=== PATIENT | female | born 1945 | race Caucasian/White ===

== ENCOUNTER 2016-09-30 02:05 | Inpatient (IN) ==
[2016-09-24 13:05] LABS: URINE SOURCE CLEAN CATCH
[2016-09-24 13:10] LABS: MANUAL DIFF NEEDED? NO
[2016-09-24 13:32] LABS: INR 1.19; PROTIME 12.6 Seconds (9.2-11.7); PTT 28.7 Seconds (22.0-36.0)
[2016-09-24 13:42] LABS: BASO% 0.3 % (0.0-0.8); EOS# 0.03 X1000 (0.0-0.7); EOS% 0.4 % (0.0-10.0); HEMATOCRIT 43.7 % (37.0-47.0); HEMOGLOBIN 14.3 g/dL (12.0-16.0); LYMPH# 1.49 X1000 (1.2-3.4); LYMPH% 21.4 % (20.5-51.1); MCH 32.2 PG (27-31); MCHC 32.7 g/dL (33-37); MCV 98.4 FL (81-99); MONO# 0.55 X1000 (0.11-0.59); MONO% 7.9 % (1.7-9.3); MPV 10.5 FL (7.4-10.4); PLT 292 X1000 (130-400); RBC 4.44 XMIL (4.2-5.4)
[2016-09-24 13:51] LABS: BILIRUBIN URINE NEGATIVE (NEGATIVE); BLOOD URINE NEGATIVE (NEGATIVE); CLARITY SLIGHTLY CLOUDY (CLEAR); COLOR YELLOW; GLUCOSE URINE NEGATIVE (NEGATIVE); LEUKOCYTES URINE NEGATIVE (NEGATIVE); NITRITE URINE NEGATIVE (NEGATIVE); PH URINE 7.5; PROTEIN URINE NEGATIVE (NEGATIVE); UROBILINOGEN URINE 0.2 EU/dL (0.2-1.0)
[2016-09-24 13:54] LABS: URINE EPITHELIAL CELLS <10 /HPF (<10); URINE RBC <10 /HPF (<10); URINE WBC <10 /HPF (<10)
[2016-09-24 13:57] LABS: AGAP 12; BUN 14 mg/dL (8-22); CALCIUM 9.9 mg/dL (8.8-10.2); CHLORIDE 100 mmol/L (98-107); COSMO 278; POTASSIUM 4.3 mmol/L (3.5-5.1); SODIUM 139 mmol/L (136-145); TCO2 27 mmol/L (25-35)
[2016-09-30] MEDS ORDERED: REGLAN ONE (06:09)
[2016-09-30] MEDS ORDERED: PEPCID ONE (06:09)
[2016-09-30] MEDS ORDERED: COLACE ONE (06:09)
[2016-09-30] MEDS ORDERED: CELEBREX ONE (06:10)
[2016-09-30] MEDS ORDERED: LYRICA ONE (06:10)
[2016-09-30] MEDS ORDERED: KEFZOL 1 GM/D5W 50 ML ONE (06:10)
[2016-09-30] MEDS ORDERED: LR 1,000 ML ONE ×2 (06:10→10:58)
[2016-09-30] MEDS ORDERED: NAROPIN 0.5% ONE (07:34)
[2016-09-30] MEDS ORDERED: DURAMORPH ONE (07:51)
[2016-09-30] MEDS ORDERED: TORADOL ONE (07:51)
[2016-09-30] MEDS ORDERED: SODIUM CHLORIDE 0.9% ONE (07:52)
[2016-09-30] MEDS ORDERED: NEOSPORIN G.U. IRRIGANT ONE (07:52)
[2016-09-30] MEDS ORDERED: EXPAREL 1.3% ONE (07:52)
[2016-09-30] MEDS ORDERED: MARCAINE 0.25% PF/EPI 1:200,000 ONE (07:52)
[2016-09-30] MEDS ORDERED: CLAVE SECONDARY SET 11953 ONE ×2 (08:25→10:58)
[2016-09-30] MEDS ORDERED: CYKLOKAPRON 1,000 MG/NS 100 ML ONE (08:25)
[2016-09-30] MEDS ORDERED: TENORMIN PO SCH (09:00)
[2016-09-30] MEDS ORDERED: VANCOMYCIN ONE (09:00)
[2016-09-30] MEDS ORDERED: ELIQUIS PO SCH (09:00)
[2016-09-30] MEDS ORDERED: TRICOR PO SCH (09:00)
--- NOTE | 2016-09-30 09:21 | HISTORY AND PHYSICAL ---
CHIEF COMPLAINT: Left shoulder pain. HISTORY OF PRESENT ILLNESS: Ms. Lopez is a 71-year-old, white female with a history of left shoulder pain for about 3 months after she fractured her humerus. While in rehab, she reinjured it. We will be admitting her today for a left reverse total shoulder arthroplasty. PAST MEDICAL HISTORY: Hypertension, congestive heart failure, myocardial infarction, cardiac stents, atrial fibrillation, gout, hyperlipidemia, hypothyroidism. SURGICAL HISTORY: Carotid endarterectomy, bladder tack, hysterectomy, aneurysm repair in the groin. FAMILY HISTORY: Noncontributory. SOCIAL HISTORY: She is . She smokes about a half a pack of cigarettes a day and reports using alcohol occasionally. CURRENT HOME MEDICATIONS: 1. Mobic 7.5 mg p.o. daily. 2. Atenolol 25 mg p.o. daily. 3. Synthroid 100 mcg p.o. daily. 4. Amiodarone 200 mg p.o. daily. 5. Tramadol 50 mg p.o. q.6 hours. 6. Trazodone 100 mg p.o. at bedtime p.r.n. 7. Losartan potassium 50 mg p.o. daily. 8. Allopurinol 300 mg p.o. daily. 9. Eliquis 5 mg p.o. b.i.d. 10. Atorvastatin 80 mg p.o. daily. 11. TriCor 145 mg p.o. daily. 12. Oxycodone/acetaminophen 5/325 one p.o. p.r.n. ALLERGIES: No known drug allergies. PRIMARY CARE PROVIDER: Dr. Vinay Garcia. REVIEW OF SYSTEMS: HEENT: The patient reports wearing glasses, having dentures and hearing aids as well. Cardiac: Patient reports having a history of atrial fibrillation as well as having a myocardial infarction in the past. Pulmonary: The patient denies any lung problems. Denies any coughing, wheezing, or hemoptysis. Gastrointestinal: Patient denies any chronic gastrointestinal problems. Denies any nausea, vomiting, or diarrhea. Genitourinary: The patient reports having a bladder tack in the past and having urinary frequency but denies any other genitourinary problems. Neurological: Patient denies any numbness or tingling anywhere. Denies any neurological deficits. Musculoskeletal: Patient reports left shoulder pain. PHYSICAL EXAMINATION: GENERAL: The patient is in the bed. She is sitting up. She is articulate and answers questions appropriately. HEENT: Head is normocephalic, atraumatic. Pupils equal, round, and reactive to light. Nares patent. Throat without exudate. CARDIAC: S1-S2 auscultated. There is a systolic murmur which is a grade 3/6 as well as a left carotid bruit. I have conveyed that to anesthesia to evaluate further. PULMONARY: The patient's lungs are clear to auscultation bilaterally in all lung griggs. GASTROINTESTINAL: Abdomen is soft, nontender, and nondistended. Bowel sounds present in all quadrants. GENITOURINARY: Not examined. NEUROLOGICAL: Patient has good sensation to dull touch in all extremities. Cranial nerves 2-12 are grossly intact. MUSCULOSKELETAL: On physical examination of the left shoulder, it reveals pain with palpation and passive range of motion of the left shoulder and left straight upper extremity. IMPRESSION: Left two-part humerus fracture. PLAN: Left reverse total shoulder arthroplasty. The risks, benefits, and alternatives of the surgery were discussed with the patient including the risk of anesthesia, bleeding, damage to blood vessels, nerves, tendons, ligaments, and other imponderables were discussed. The patient agrees to proceed with the surgery at this time. Dictated by MARQUISE Ashton for Jeffery Valerio MD
[2016-09-30] MEDS: CORDARONE PO SCH (10:18)
[2016-09-30] MEDS: ZYLOPRIM PO SCH (10:18)
[2016-09-30] MEDS: COZAAR PO SCH ×2 (10:18→12:37)
[2016-09-30] MEDS ORDERED: NS 1,000 ML ONE (10:37)
[2016-09-30] MEDS ORDERED: MORPHINE IV PRN (10:39)
[2016-09-30] MEDS ORDERED: MILK OF MAGNESIA PO PRN (10:45)
[2016-09-30] MEDS ORDERED: ZOFRAN PO PRN (10:45)
[2016-09-30] MEDS ORDERED: FENTANYL ONE (10:53)
[2016-09-30] MEDS ORDERED: VERSED ONE (10:53)
[2016-09-30] MEDS ORDERED: DIPRIVAN 1% ONE (10:54)
[2016-09-30] MEDS ORDERED: NORCURON ONE (10:57)
[2016-09-30] MEDS ORDERED: NEOSTIGMINE ONE (10:57)
[2016-09-30] MEDS ORDERED: DECADRON ONE (10:58)
[2016-09-30] MEDS ORDERED: ROBINUL ONE (10:58)
[2016-09-30] MEDS ORDERED: OFIRMEV 1000 MG/ISOTONIC SOLN 100 ML ONE (10:58)
[2016-09-30] MEDS ORDERED: QUELICIN (DOSE) ONE (10:58)
[2016-09-30 11:33] LABS: URINE SOURCE CATH
--- NOTE | 2016-09-30 11:34 | OPERATIVE NOTE ---
PROCEDURE DATE: 09/30/2016 PREOPERATIVE DIAGNOSIS: Left proximal humeral fracture. POSTOPERATIVE DIAGNOSIS: Left proximal humeral fracture. PROCEDURE: Left reverse total shoulder arthroplasty with a DePuy Delta Xtend size 10 cemented stem, a 42 +6 humeral cup, 42 eccentric Glenosphere and a standard metaglene. SURGEON: Jeffery Valerio MD BARREL POLISHER: MARQUISE Ashton [employer] T[employer]OR: Colt Marmolejo RN. ANESTHESIA: General. IV FLUIDS: 1700 mL lactated Ringer's. ESTIMATED BLOOD LOSS: 200 mL. COMPLICATIONS: None. INDICATION: The patient is a pleasant 71-year-old female who is status post a fall, sustaining a left proximal humeral fracture a couple months ago. She was attempting nonoperative treatment, had some increased displacement, and inadequate healing, and given patient's continued pain and discomfort, recommendation to proceed with left reverse shoulder arthroplasty was offered. Risks and benefits of surgical explained, includes risk of anesthesia, , bleeding, infection, failure to relieve pain, postop stiffness, nerve injury, blood clots, and other imponderables. All questions were answered and the patient and family wished to proceed with surgery. DETAILS OF OPERATION: Patient was taken to the operating room and placed supine on the operating table. Once adequate anesthesia was obtained, patient was placed in semi-Sanchez beach-chair position. The left shoulder was subsequently prepped and draped in usual sterile fashion. A standard deltopectoral incision was made with a skin knife. Medial and lateral skin envelopes were developed. Hemostasis was obtained using electrocautery. The deltopectoral interval was then developed. The cephalic vein was retracted laterally. Dubois retractors were placed. The clavipectoral fascia was then elevated. Attention then turned to the subscapularis, it was elevated off its insertion site. A stay suture was placed. The biceps tendon was released. The proximal humeral head was then identified and removal of the head was then conducted and the soft tissue was excised. The patient did have evidence of greater tuberosity with loose fracture as well. A rongeur was used on this as well as excising the tissue attached to this site. After this had been performed, attention was then turned to the glenoid. Circumferential dissection was performed with a deep knife. A guide was then placed on the glenoid and a guide pin was placed. Reaming was then conducted. A standard metaglene was placed. Three locking screws were then placed. It appeared to have good stability. A 42 Eccentric glenosphere was then placed with eccentricity placed inferiorly. After this had been performed, attention then turned to the humerus. Reaming was then conducted up to a size 10. A trial stem was then placed to determine the height and then this was removed. Copious irrigation was performed with antibiotic pulsatile lavage in the intramedullary canal, while vancomycin was mixed with cement on the back table. Cement was then impacted in the humeral shaft, this followed by the size 10 Delta Xtend cemented stem, placed in position in 10 degrees of retroversion. After the cement had hardened, trial cups were placed and the 42 +6 had excellent stability and range of motion. The trial cup was removed. A 42 +6 humeral cup was then impacted on the stem. The shoulder was reduced, carried through range of motion had excellent stability and range of motion. Exparel was placed in deep soft tissue as well as subcutaneous tissue. The wound was copiously irrigated with antibiotic pulsatile lavage. A 2-0 Vicryl was then used to repair the subcutaneous tissue, followed by running 2-0 Prolene. Benzoin and Steri-Strips were placed. Adaptic, sterile 4x4s, ABD pad, and tape applied to the left shoulder, followed by a shoulder immobilizer. All counts correct. Patient tolerated the procedure well, was transferred to the recovery room in stable condition.
[2016-09-30 11:37] LABS: BILIRUBIN URINE NEGATIVE (NEGATIVE); BLOOD URINE NEGATIVE (NEGATIVE); COLOR YELLOW; GLUCOSE URINE NEGATIVE (NEGATIVE); LEUKOCYTES URINE NEGATIVE (NEGATIVE); NITRITE URINE NEGATIVE (NEGATIVE); PROTEIN URINE NEGATIVE (NEGATIVE); SP GRAVITY URINE 1.019; TURBIDITY URINE CLEAR (CLEAR); UROBILINOGEN URINE NORMAL (NORMAL)
[2016-09-30 11:38] LABS: URINE MICRO REVIEW NEEDED? YES
[2016-09-30 11:42] LABS: UR EPITHELIAL CELLS <10 /HPF (<10); URINE BACTERIA NEGATIVE /HPF; URINE RBC <10 /HPF (<10); URINE WBC <10 /HPF (<10)
[2016-09-30 11:48] LABS: URINE CASTS NONE SEEN; URINE CRYSTALS NONE SEEN
[2016-09-30 11:49] LABS: URINE SMALL ROUND CELLS NONE SEEN
[2016-09-30] MEDS: NS 1,000 ML IV SCH ×2 (11:58→22:06)
--- NOTE | 2016-09-30 13:45 | Diag Imaging Result Document ---
PROCEDURE NAME: SHOULDER 1 VIEW LEFT - 09/30/2016 X-RAY LEFT SHOULDER, 1 VIEW: COMPARISON: None. FINDINGS: There has been placement of a left total shoulder arthroplasty. Alignment is anatomic. No hardware fracture or loosening. IMPRESSION: No evidence of complication.
[2016-09-30] MEDS ORDERED: CYKLOKAPRON 1,000 MG in NS 100 ML IV ONE (14:35)
[2016-09-30] MEDS: TYLENOL PO SCH ×2 (15:45→22:06)
[2016-09-30] MEDS: KEFZOL 1 GM/D5W 50 ML IV SCH (16:04)
[2016-09-30] MEDS: OXY IR PO PRN ×3 (16:09→22:07)
[2016-09-30] MEDS ORDERED: DESYREL PO PRN (21:00)
[2016-09-30] MEDS: ELIQUIS PO SCH (22:07)
[2016-09-30] MEDS: COLACE PO SCH (22:07)
[2016-09-30] MEDS: PERIDEX MT SCH (22:08)
[2016-10-01] MEDS: KEFZOL 1 GM/D5W 50 ML IV SCH (01:06)
[2016-10-01] MEDS: TYLENOL PO SCH ×2 (02:29→08:55)
[2016-10-01] MEDS: OXY IR PO PRN (05:49)
[2016-10-01 06:51] LABS: HEMOGLOBIN 11.6 g/dL (12.0-16.0)
[2016-10-01 07:19] LABS: AGAP 14; BUN 11 mg/dL (8-22); CALCIUM 9.1 mg/dL (8.8-10.2); CHLORIDE 106 mmol/L (98-107); COSMO 282; POTASSIUM 5.3 mmol/L (3.5-5.1); SODIUM 142 mmol/L (136-145); TCO2 22 mmol/L (25-35)
--- NOTE | 2016-10-01 08:42 | PROGRESS NOTE ---
DATE: 10/01/2016 SUBJECTIVE: The patient is a pleasant 71-year-old female who is one day status-post left reverse total shoulder arthroplasty. The patient is currently resting comfortably and has had no interval complaints. OBJECTIVE: On physical exam the patient's left shoulder dressing is intact. She is neurovascularly intact distally. Her hemoglobin and hematocrit are pending. IMPRESSION: Postoperative day #1 status-post left reverse total shoulder arthroplasty. PLAN: At this point we will change her dressing, discontinue her Mendiola, and heplock her IV. We will mobilize with physical therapy and we will have her discharged home after therapy. We will arrange for outpatient physical therapy and she will follow up on 10/13/2016.
[2016-10-01] MEDS: PERIDEX MT SCH (08:54)
[2016-10-01] MEDS: ELIQUIS PO SCH (08:55)
[2016-10-01] MEDS: CORDARONE PO SCH (08:55)
[2016-10-01] MEDS: COLACE PO SCH (08:55)
[2016-10-01] MEDS: ZYLOPRIM PO SCH (08:55)
[2016-10-01] MEDS: COZAAR PO SCH (08:56)
[2016-10-01] MEDS ORDERED: SYNTHROID PO SCH (09:00)
[2016-10-01] MEDS ORDERED: TENORMIN PO SCH (09:00)
[2016-10-01] MEDS ORDERED: DECADRON IV ONE (09:00)
[2016-10-01] MEDS ORDERED: LIPITOR PO SCH (09:00)
[2016-10-01] MEDS ORDERED: MOBIC PO SCH (09:00)
[2016-10-01] MEDS ORDERED: TRICOR PO SCH (09:00)
[2016-10-01 16:07] VITALS: BP 159/62
== END 2016-10-01 09:52 | disposition home or self-care (01) | DRG 483 ==
LOC: SURHOLD 02:05 → 4N 08:50
PROVIDERS: ADMIT Orthopaedic Surgery Adult Reconstructive Orthopaedic Surgery; ATTEND Orthopaedic Surgery Adult Reconstructive Orthopaedic Surgery
PROC: 0RRK00Z Replacement of Left Shoulder Joint with Reverse Ball and Socket Synthetic Substitute, Open Approach (ICD-10-PCS; principal; 2016-09-30 08:08)
DX: S42.202G Unspecified fracture of upper end of left humerus, subsequent encounter for fracture with delayed healing (principal); I11.0 Hypertensive heart disease with heart failure; I48.91 Unspecified atrial fibrillation; I50.9 Heart failure, unspecified; S42.252G Displaced fracture of greater tuberosity of left humerus, subsequent encounter for fracture with delayed healing; M10.9 Gout, unspecified; E03.9 Hypothyroidism, unspecified; R01.1 Cardiac murmur, unspecified; I73.00 Raynaud's syndrome without gangrene; M19.90 Unspecified osteoarthritis, unspecified site; W19.XXXA Unspecified fall, initial encounter; I25.10 Atherosclerotic heart disease of native coronary artery without angina pectoris; E78.5 Hyperlipidemia, unspecified; F17.210 Nicotine dependence, cigarettes, uncomplicated; I25.2 Old myocardial infarction; Z95.5 Presence of coronary angioplasty implant and graft; Z79.1 Long term (current) use of non-steroidal anti-inflammatories (NSAID); Z79.01 Long term (current) use of anticoagulants; Z79.899 Other long term (current) drug therapy; R09.89 Other specified symptoms and signs involving the circulatory and respiratory systems
CPT/HCPCS: 80048; 81001; 85014; 85018; 85025; 85610; 85730; 86850; 86900; 86901; 88305; 88311; 93005; 94761; 94799; C9290; J0131; J0330; J0690; J1100; J1885; J2250; J2274; J2795; J3010; J3370; J7030; J7120; 97110-GP; 97530-GP; J2710; S0020

== ENCOUNTER 2017-05-14 02:39 | Inpatient (IN) ==
[2017-05-14 03:11] LABS: MANUAL DIFF NEEDED? NO
[2017-05-14 03:13] LABS: BASO% 0.1 % (0.0-0.8); EOS# 0.04 X1000 (0.0-0.7); EOS% 0.6 % (0.0-10.0); HEMOGLOBIN 12.9 g/dL (12.0-16.0); IMM GRAN# 0.02 X1000 (0.0-0.04); IMM GRAN% 0.3 % (0.0-0.5); LYMPH# 1.11 X1000 (1.2-3.4); LYMPH% 16.1 % (20.5-51.1); MCH 32.4 PG (27-31); MCHC 33.1 g/dL (33-37); MONO# 0.68 X1000 (0.11-0.59); MONO% 9.9 % (1.7-9.3); MPV 10.2 FL (7.4-10.4); PLT 290 X1000 (130-400); RBC 3.98 XMIL (4.2-5.4)
[2017-05-14] MEDS ORDERED: MORPHINE IV ONE ×3 (03:25→06:00)
[2017-05-14] MEDS ORDERED: MORPHINE ONE (03:27)
[2017-05-14 03:32] LABS: AGAP 14; ALBUMIN 3.8 g/dL (3.5-5.0); ALKALINE PHOSPHATASE 43 U/L (32-104); BUN 24 mg/dL (8-22); CALCIUM 9.5 mg/dL (8.8-10.2); CHLORIDE 100 mmol/L (98-107); COSMO 278; GOT 41 U/L (10-30); GPT 21 U/L (10-36); POTASSIUM 4.8 mmol/L (3.5-5.1); SODIUM 137 mmol/L (136-145); TCO2 23 mmol/L (25-35); TOTAL BILIRUBIN 0.34 mg/dL (0.20-1.00); TOTAL PROTEIN 7.2 g/dL (6.3-8.3)
[2017-05-14] MEDS: MORPHINE IV PRN ×4 (04:40→11:42)
--- NOTE | 2017-05-14 05:09 | PROVIDER DOCUMENTATION ---
HPI-Musculoskeletal Pain/Inj - GENERAL Chief Complaint: Hip Pain Stated Complaint: FALL LEFT HIP PAIN Time Seen by Provider: 05/14/17 03:07 Source: patient - HX OF PRESENT ILLNESS-MUSKULOSKELTAL Nature of Presenting Problem: Patient had a trip and fall tonight suffering an obvious left hip fracture Quality of Pain: reports: aching Severity in ED: moderate Onset/Duration: abrupt, just prior to arrival Timing: still present Modifying Factors: improves with: immobilization, movement Locality of Occurance: Home Similar Symptoms Previously?: No Recently seen or treated by another doctor?: No - FALL INJURY Location of Pain/Injury: reports: pelvis Pain Radiation: reports: no radiation Reason for Fall: reports: slipped Symptoms prior to fall:: reports: none Loss of Consciousness: no loss of consciousness Injury Associated Symptoms: reports: joint pain, unable to bear weight, trouble walking - HIP/PELVIS PAIN/INJURY Hip Pain Location: reports: hip (L) Context / Method of Injury: reports: fall Associated Symptoms: reports: denies symptoms, loss of bladder control Review of Systems - Adult - REVIEW OF SYSTEMS - ADULT Constitutional: reports: no symptoms reported Eyes: reports: no symptoms reported Ears, Nose, Mouth & Throat: reports: see HPI Cardiovascular: reports: no symptoms reported Respiratory: reports: no symptoms reported Gastrointestinal: reports: no symptoms reported Genitourinary: reports: no symptoms reported Musculoskeletal: reports: see HPI Integumentary: reports: no symptoms reported Past History - Adult - PAST MEDICAL HISTORY-ADULT Review of Records: reports: Old Records Reviewed, Nursing Assessment Review, Medications Reviewed Physical Exam-Injury Related - Physical Exam-Injury Related Initial Vital Signs Reviewed: Yes General Appearance: appears well, alert, no apparent distress Immobilization?: backboard Eyes: PERRL/EOMI, pink conjunctivae Head, Ears, Nose, Mouth & Throat: normocephalic/atraumatic, moist mucous membranes, normal ENT inspection Neck: non-tender, full range of motion, supple Respiratory: chest non-tender, lungs clear Cardiovascular: normal peripheral pulses, regular rate, rhythm, systolic murmur Chest/Breast: deferred Peripheral Pulses: dorsalis-pedis (R): 3+, dorsalis-pedis (L): 2+ Abdominal Exam: normal bowel sounds, non tender, soft Rectal Exam: deferred Back Exam: normal inspection, no CVA tenderness Extremity: deformity (left leg shortened and everted) Progress - PLAN OF CARE/RESULTS Progress/Plan/Lab Results: Vital Signs - 8 hr 05/14/17 02:46 05/14/17 02:52 05/14/17 02:53 Temperature 97.6 F Pulse Rate 53 L 53 L 52 L Respiratory Rate 17 18 22 Blood Pressure 157/69 157/69 O2 Sat by Pulse Oximetry 96 95 94 L 05/14/17 03:00 05/14/17 03:02 05/14/17 03:03 Temperature Pulse Rate 50 L 50 L 50 L Respiratory Rate 18 12 14 Blood Pressure 90/51 O2 Sat by Pulse Oximetry 96 97 97 05/14/17 03:30 05/14/17 03:31 05/14/17 03:32 Temperature Pulse Rate 54 L 53 L 53 L Respiratory Rate 16 16 19 Blood Pressure 95/59 O2 Sat by Pulse Oximetry 96 99 05/14/17 04:00 05/14/17 04:01 05/14/17 04:09 Temperature Pulse Rate 52 L 52 L 53 L Respiratory Rate 26 H 20 16 Blood Pressure 79/49 75/55 O2 Sat by Pulse Oximetry 97 95 98 05/14/17 04:16 05/14/17 04:25 05/14/17 04:26 Temperature Pulse Rate 53 L 54 L 53 L Respiratory Rate 20 23 17 Blood Pressure 85/53 94/54 152/58 O2 Sat by Pulse Oximetry 96 93 L 94 L 05/14/17 04:30 05/14/17 04:31 05/14/17 05:00 Temperature Pulse Rate 54 L 53 L 52 L Respiratory Rate 18 14 14 Blood Pressure 139/62 105/47 O2 Sat by Pulse Oximetry 72 L 95 05/14/17 05:01 Temperature Pulse Rate 52 L Respiratory Rate 17 Blood Pressure O2 Sat by Pulse Oximetry 94 L Laboratory Results - last 24 hr 05/14/17 05/14/17 02:50 02:50 WBC 6.88 RBC 3.98 L Hgb 12.9 Hct 39.0 MCV 98.0 MCH 32.4 H MCHC 33.1 RDW Std Deviation 15.8 H Plt Count 290 MPV 10.2 Immature Gran % (Auto) 0.3 Neut % (Auto) 73.0 Lymph % (Auto) 16.1 L [place] % (Auto) 9.9 H Eos % (Auto) 0.6 Baso % (Auto) 0.1 Immature Gran # (Auto) 0.02 Neut # (Auto) 5.02 Lymph # (Auto) 1.11 L [place] # (Auto) 0.68 H Eos # (Auto) 0.04 Baso # (Auto) 0.01 Sodium 137 Potassium 4.8 Chloride 100 Carbon Dioxide 23 L Anion Gap 14 BUN 24 H Creatinine 0.8 Estimated GFR/1.73 m2 > 60 BUN/Creatinine Ratio 30 Glucose 108 H Calculated Osmolality 278 Calcium 9.5 Total Bilirubin 0.34 AST 41 H ALT 21 Alkaline Phosphatase 43 Total Protein 7.2 Albumin 3.8 Globulin 3.4 Albumin/Globulin Ratio 1.1 Orders Category Date Time Status Mendiola Cath Insertion ORDERED Care 05/14/17 05:23 Active HIP 1 VIEW LEFT [RAD] Stat Exams 05/14/17 03:04 Taken CBC WITH ELECTRONIC DIFF [HEME] Stat Lab 05/14/17 02:50 Completed CMP [COMPREHENSIVE METABOLIC PANEL] [CHEM] Stat Lab 05/14/17 02:50 Completed Morphine Med 05/14/17 03:27 Discontinued 2 mg .ROUTE .STK-MED ONE Morphine Med 05/14/17 03:32 Discontinued 2 mg IV NOW ONE Morphine Med 05/14/17 04:31 Active 2 mg IV Q30M PRN PRN Morphine Med 05/14/17 03:25 Discontinued 4 mg IV NOW ONE Transfer/Admit Order [TRANSFER] Routine Transfer 05/14/17 05:23 Ordered Result Diagrams: 05/14/17 02:50 05/14/17 02:50 - XRAY 1 XRAY: Left XRAY Study: Hip Impression: Abnormal (lefthip fx) - CONSULTS/PCP/HOSPITALIST Notification #1 *Consult/PCP/Hospitalist*: Dr solomon Time Discussed: 05:00 Consult Disposition: Will see in ED, Admit Departure - Departure Date of Disposition Decision: 05/14/17 Time of Disposition Decision: 05:00 DIAGNOSIS: Hip fracture, left Disposition: ADMITTED INPATIENT 09 Certified Medical Emergency: Emergent Condition: Good Referrals and Follow-Ups: Henok Garcia MD [Primary Care Provider] - - Critical Care Note This patient required my direct & personal management of CC.: No Attestation - Physician/ RAUL Attestation Patient care was provided by Advanced Practice Provider:: No The physician spent face to face time with patient:: Yes Advanced Practice Provider documentation review:: Supervising physician onsite and consulted in the evaluation and care of this patient. The physician did have a face to face encounter with the patient.
--- NOTE | 2017-05-14 07:09 | HISTORY AND PHYSICAL ---
Patient of Dr. Jeffery Mclean. REASON FOR ADMISSION: Left hip pain. HISTORY OF PRESENT ILLNESS: Ms. Kristen Lopez is a 69-year-old lady with past medical history of peripheral arterial disease, atrial fibrillation, hypertension, gout, hyperlipidemia, hypothyroidism, coronary artery disease status post stents who has been complaining of increasingly worsening ataxia for the last few months. The early hours of this warning about 1 a[address]. she was on the way to the bathroom when she missed her footing and fell and landed on her left side. She says she was unable to get up for 2 reasons, 1 because she had reconstructive surgery of her left shoulder which is somewhat weak and because of the pain in her left hip. She managed to get the attention of a family member who called EMS. The patient denies any contact with her head to the floor or loss of consciousness. No antecedent palpitations, chest pain, shortness of breath or lightheadedness. No antecedent history of vomiting or diarrhea or blood loss. The patient says her left pain is sharp radiating down to her left knee, it is constant with minimal relief from IV morphine given in the ER. REVIEW OF SYSTEMS: Twelve review of systems done. Positive findings noted in the HPI. ALLERGIES: No known allergies. MEDICATIONS: Allopurinol 300 mg daily, amiodarone 200 mg daily, Eliquis 5 mg b.i.d., atenolol 25 mg daily, Lipitor 80 mg daily, Tricor 45 mg daily, Synthroid 100 mcg daily, losartan 50 mg daily, Mobic 7.5 mg daily, tramadol 50 mg q.6 p.r.n., trazodone 100 mg at bedtime p.r.n. SURGICAL HISTORY: Bilateral carotid endarterectomy, bladder tack, hysterectomy, aneurysmal repair, left humeral fracture repair. FAMILY HISTORY: Notable for lupus in her daughter. No heart disease or diabetes in first-degree relatives. SOCIAL HISTORY: Smokes about a half pack a day and very, very occasional alcohol drinking. No illicit drug use. Lives with her . LABORATORY WORK: Shows white count 6000, hemoglobin and hematocrit 12 and 39, platelets 290,000. BUN is 29, creatinine 0.8, glucose 108, AST 41, ALT 21. Hip x-ray confirmed the left hip fracture. EXAMINATION: Heart rates anywhere between 50 and 54, blood pressure is anywhere between 75/55 to 105/47, respirations 14, she is afebrile. General: She is an elderly woman who looks good for her stated age. She is alert and oriented to person, time with normal mood and affect. She is not in acute distress. HEENT: Head is normocephalic, atraumatic. Eyes, JASON, EOMI. She is anicteric. Mildly pale. ENT exam is grossly normal with no evidence of central cyanosis. No oropharyngeal exudates or erythema. Neck: Neck reveals left bruit but no visual thyromegaly. No JVD. Chest: Clear to auscultation. Good air entry both lung griggs. Cardiovascular: First and second heart sounds heard. 2/6 ejection systolic murmur heard. Rhythm is regular. Abdomen: Full, soft, nontender. No mass, megaly, bowel sounds normal. Rectal: Deferred at this time. Extremities: Left lower extremity is shorter right and is slightly externally rotated. Pulses distally lower extremities equal symmetrical with good volume. Neurological: Grossly intact although I could not do a full exam of the left lower extremity. She is able to move her toes. Skin: Intact. No breakdown, lesions or erythema. Musculoskeletal: See above. Otherwise, grossly normal. ASSESSMENT: At this time is 1. Right hip fracture. 2. Atrial fibrillation. Now currently in sinus bradycardia. 3. Hypertension. 4. Hyperlipidemia. 5. Coronary artery disease. 6. Hyperlipidemia. 7. Gout. 8. Mild dehydration. 9. Hypothyroidism. PLAN: At this time, we will notify Dr. Valerio to see patient hopefully for surgery today. Treat patient symptomatically with pain medication and IV morphine and Ofirmev. Hydrate patient adequately. We will be very conservative with the patient's blood pressure and will not give any ARB unless systolic blood pressure is 140 and withhold beta block if the heart rate less than 160 and diastolic greater than 120. Also will hold Eliquis. In light of this I suspect patient will not have surgery until tomorrow because of use of Eliquis. However I will defer to Dr. Valerio on this decision. Later today the patient will be transferred to service of Dr. Jeffery Mclean and he will resume full care of this patient and make any of the necessary changes he deems necessary. cc: Olakunle MD Asuh Davidson MD
--- NOTE | 2017-05-14 07:11 | EKG Report ---
Test Performed on : 05/14/2017 06:39:47 AM Test Reason : a fib preop Blood Pressure : / mmHG Vent. Rate : 055 BPM Atrial Rate : 055 BPM P-R Int : 212 ms QRS Dur : 116 ms QT Int : 494 ms P-R-T Axes : 077 053 061 degrees QTc Int : 472 ms Sinus bradycardia. with 1st degree AV block. Left ventricular hypertrophy with QRS widening Abnormal ECG When compared with ECG of 04-FEB-2017 22:05, No significant change was found Confirmed by Otis GONZALEZ, Brad Head ([id number]) on 05/15/2017 6:40:40 AM
[2017-05-14] MEDS ORDERED: TYLENOL PO PRN (07:25)
[2017-05-14] MEDS ORDERED: ZOFRAN IV PRN (07:25)
--- NOTE | 2017-05-14 07:39 | Diag Imaging Result Doc PS360 ---
EXAM: HIP 1 VIEW LEFT INDICATION: Fall Left hip Pain TECHNIQUE: One view COMPARISON: None. FINDINGS: There is an intertrochanteric fracture involving the left hip with a displaced lesser trochanter fragment. The left hip joint is preserved. No other fractures are appreciated. IMPRESSION: Intertrochanteric fracture of the left hip as described. Electronically signed by Scot Severino 05/14/2017 7:37 AM
[2017-05-14] MEDS: NS 1,000 ML IV SCH ×2 (07:45→16:30)
[2017-05-14] MEDS: OFIRMEV 1000 MG/ISOTONIC SOLN 1,000 MG/100 ML BOTTLE IV SCH ×3 (07:45→20:31)
--- NOTE | 2017-05-14 09:18 | PROGRESS NOTE ---
DATE: 05/14/2017 SUBJECTIVE: Ms. Lopez fell early this morning sustaining an intertrochanteric fracture of the left hip. She reports that her pain is generally well controlled on the morphine. She is scheduled for surgery later today per Dr. Valerio. She has a history of paroxysmal atrial fibrillation. She remains in normal sinus rhythm. She denies any chest pain, palpitations, or anginal equivalents. OBJECTIVE: Vital Signs: Her blood pressure is generally well controlled. Systolic blood pressures range from 114-118, whereas her diastolic blood pressures have been in the 40s and 60s. Temperature 98.0 degrees, pulse 112, respiratory rate 16, BP 118/44. CV: Tachycardic. Regular S1, S2. There is a 2/6 systolic ejection murmur at the left sternal margin. Lungs: Clear. Abdomen: Soft, nontender, with active bowel sounds. ASSESSMENT AND PLAN: 1. Intertrochanteric fracture of the left hip. We will continue to hold her on nothing by mouth and use intravenous morphine for pain. We will hold the Eliquis in anticipation of surgery, and will follow blood counts closely postoperatively. 2. Paroxysmal atrial fibrillation. She remains in normal sinus rhythm. We will continue atenolol 25 mg daily for rate control and Cordarone 200 mg daily. While she is hospitalized, I will check a thyroid stimulating hormone and free T4, as well as a portable chest x-ray, given the fact that she is currently taking amiodarone. cc: Ashu Garcia MD
[2017-05-14 09:38] LABS: FREE T4 1.6 ng/dL (0.93-1.70)
--- NOTE | 2017-05-14 11:36 | Diag Imaging Result Doc PS360 ---
EXAM: CHEST-PORTABLE INDICATION: HTN TECHNIQUE: One view COMPARISON: 02/04/2017 FINDINGS: There is evidence of prior granulomatous disease, stable. There is stable hyperinflation. The lungs are grossly clear, otherwise. There is no discrete pleural fluid collection or pneumothorax. There is stable cardiomegaly. Central vasculature is unremarkable. IMPRESSION: Stable cardiomegaly and COPD changes but no definite acute pathology. Electronically signed by Scot Severino 05/14/2017 11:34 AM
[2017-05-14] MEDS: TENORMIN PO SCH ×2 (11:43→11:45)
[2017-05-14] MEDS: CORDARONE PO SCH (11:43)
[2017-05-14] MEDS ORDERED: KEFZOL 1 GM/D5W 1 GM/50 ML IVPB IV ONE (12:24)
--- NOTE | 2017-05-14 12:56 | CONSULTATION ---
DATE OF CONSULTATION: 05/14/2017 COMPLAINT: Left hip pain status post fall. HISTORY OF PRESENT ILLNESS: Ms. Lopez is a 72-year-old female, who has experienced left hip pain after falling onto her left hip last night. She was unable to bear weight after the fall. She was brought to the emergency room for evaluation, where radiographic findings revealed a left intertrochanteric fracture of her left hip. She denies any loss of consciousness, headaches, or visual disturbances. For her allergies, medications, past surgical history, and past medical history , see her admission history and physical. REVIEW OF SYSTEMS: A 10-point review of systems was reviewed with the patient and was negative other than as stated in HPI above. PHYSICAL EXAMINATION: General: The patient is resting comfortably at bedside. She is able to answer and articulate all questions fully. She is alert and oriented. She is in no acute distress. HEENT: Head is normocephalic, atraumatic. Neck: Supple. Heart: She has 2+ pedal pulses bilaterally. Lungs: Respirations are nonlabored. Abdomen: Was nondistended. Neurological: She discerns soft touch to the affected extremity. Gross motor function is intact. Musculoskeletal: Left hip: She has pain with movement of the left hip. She does have some deformity of the left hip. Her leg appears to be slightly shortened and externally rotated. I do not appreciate any ecchymosis or abrasions. IMPRESSION: Left hip intertrochanteric fracture. PLAN: Left long trochanteric fixation nail placement. Dr. Venegas discussed with the patient and family the risks and benefits of surgery. They were explained to the patient including risk of anesthesia, , bleeding, infection, damage to tendons, ligaments, nerves, blood vessels, possibility of bleeding, blood clots, and other imponderables were discussed with the patient and family, and the patient wishes to proceed with operative management at this time. We will plan to do her surgery tomorrow. Dictated by RUY Craig for James Venegas MD cc: RUY Craig MD M. Neel Roberts, MD MTDD
[2017-05-14] MEDS: LIPITOR PO SCH (14:16)
[2017-05-14] MEDS: SYNTHROID PO SCH (14:16)
[2017-05-14] MEDS: ZYLOPRIM PO SCH (14:17)
[2017-05-14] MEDS: COZAAR PO SCH ×2 (14:17→14:24)
[2017-05-14] MEDS: OXY IR PO PRN ×3 (14:17→23:06)
[2017-05-14] MEDS ORDERED: BLISTEX MEDICATED BERRY LIP BALM TOP PRN (19:46)
[2017-05-15] MEDS: MORPHINE IV PRN (04:34)
[2017-05-15] MEDS: SYNTHROID PO SCH ×2 (06:02→10:24)
[2017-05-15 06:20] LABS: MANUAL DIFF NEEDED? NO
[2017-05-15] MEDS ORDERED: DIPRIVAN 1% ONE (06:29)
[2017-05-15] MEDS ORDERED: XYLOCAINE-MPF 2% ONE (06:30)
[2017-05-15 06:42] LABS: BASO% 0.3 % (0.0-0.8); EOS# 0.04 X1000 (0.0-0.7); EOS% 0.5 % (0.0-10.0); HEMATOCRIT 33.3 % (37.0-47.0); HEMOGLOBIN 10.6 g/dL (12.0-16.0); LYMPH# 1.02 X1000 (1.2-3.4); LYMPH% 13.2 % (20.5-51.1); MCH 31.9 PG (27-31); MCHC 31.8 g/dL (33-37); MCV 100.3 FL (81-99); MONO# 0.78 X1000 (0.11-0.59); MONO% 10.1 % (1.7-9.3); MPV 10.1 FL (7.4-10.4); NEUT% 75.9 % (42.2-75.2); PLT 255 X1000 (130-400); RBC 3.32 XMIL (4.2-5.4)
[2017-05-15 07:02] LABS: AGAP 9; ALBUMIN 3.1 g/dL (3.5-5.0); ALKALINE PHOSPHATASE 42 U/L (32-104); BUN 15 mg/dL (8-22); CALCIUM 8.7 mg/dL (8.8-10.2); CHLORIDE 105 mmol/L (98-107); COSMO 276; GOT 33 U/L (10-30); GPT 15 U/L (10-36); POTASSIUM 4.5 mmol/L (3.5-5.1); SODIUM 138 mmol/L (136-145); TCO2 24 mmol/L (25-35); TOTAL BILIRUBIN 0.59 mg/dL (0.20-1.00); TOTAL PROTEIN 6.3 g/dL (6.3-8.3)
[2017-05-15] MEDS ORDERED: FENTANYL ONE (07:29)
[2017-05-15] MEDS ORDERED: ROBINUL ONE (07:30)
[2017-05-15] MEDS ORDERED: NEO-SYNEPHRINE ONE (07:30)
[2017-05-15] MEDS ORDERED: EPHEDRINE ONE (07:30)
[2017-05-15] MEDS ORDERED: DECADRON ONE (07:42)
[2017-05-15] MEDS ORDERED: OFIRMEV 1000 MG/ISOTONIC SOLN 1,000 MG/100 ML BOTTLE ONE (07:42)
[2017-05-15] MEDS ORDERED: ZOFRAN ONE (07:42)
[2017-05-15] MEDS: PHENERGAN ONE ×2 (08:28→08:42)
--- NOTE | 2017-05-15 08:48 | OPERATIVE NOTE ---
PROCEDURE DATE: 05/15/2017 PREOPERATIVE DIAGNOSIS: Left intertrochanteric fracture. POSTOPERATIVE DIAGNOSIS: Left intertrochanteric fracture. PROCEDURE: Left trochanteric fixation nail placement. ANESTHESIA: General. SURGEON: Dr. James Venegas. FIELD AGENT: Hattie Botello PA-C. was present throughout the case and her assistance was critical for assistance with preparing the bone for implantation of the implants, assisting with implanting the implant and wound closure. Her assistance decreased anesthesia time and increased the efficiency in the operative suite resulting in a shorter anesthesia and operative time. BLOOD LOSS: Minimal. COMPLICATIONS: None. DESCRIPTION OF PROCEDURE: The patient brought to the operative suite and placed in supine position. After successful administration of spinal anesthesia, the patient was placed on the OSI table in the usual position for left hip. The left hip was prepped and draped in the usual sterile fashion and through an incision of proximal tip of the greater trochanter, it was dissected sharply through the skin, and then a guide pin was placed in the center of the femoral canal on AP and lateral images. This was reamed with a cannulated reamer and then the short 10 mm nail was driven into place then through a stab incision laterally. A guide pin was placed in the center of the femoral head on the AP and lateral images. It was measured to 100 mm. It was reamed and the helical blade was driven into place. It was locked proximally and then released a quarter turn to allow it to compress and then it was compressed with the guide. Then, through the previous stab incision, the distal locking screw was placed using the guide. It was drilled properly and screw of 40 mm was driven into place. Excellent placement of the hardware and reduction of the fracture was obtained on AP and lateral images. The guide was removed. The wounds were copiously irrigated. Skin edge approximated with 2-0 Vicryl. Skin was closed with skin paul and a sterile dressing was applied. The patient tolerated the procedure well without complication. At the end of the procedure, all counts correct x2. The patient was transferred to the recovery room in stable condition. cc: MD Ashu Reed MD
[2017-05-15] MEDS ORDERED: MORPHINE ONE (08:52)
[2017-05-15] MEDS ORDERED: MILK OF MAGNESIA PO PRN (10:08)
[2017-05-15] MEDS ORDERED: ZOFRAN IV PRN (10:08)
[2017-05-15] MEDS ORDERED: HALDOL IV PRN (10:08)
[2017-05-15] MEDS: LIPITOR PO SCH (10:23)
[2017-05-15] MEDS: CORDARONE PO SCH (10:23)
[2017-05-15] MEDS: ZYLOPRIM PO SCH (10:23)
[2017-05-15] MEDS: COZAAR PO SCH (10:23)
[2017-05-15] MEDS: NS 1,000 ML IV SCH ×2 (10:26→22:23)
[2017-05-15] MEDS: OXY IR PO PRN ×3 (10:34→22:22)
[2017-05-15] MEDS: TENORMIN PO SCH (12:14)
[2017-05-15] MEDS: TYLENOL PO SCH ×2 (14:09→22:22)
--- NOTE | 2017-05-15 14:42 | PROGRESS NOTE ---
DATE: 05/15/2017 SUBJECTIVE: Mrs. Kristen Daniels was admitted to [facility] with an intertrochanteric fracture of the left hip. She had a left trochanteric fixation nail placement performed earlier today. Her pain is generally well controlled on a combination of morphine. She remains in normal sinus rhythm. Her heart rate is well controlled ranging from 54-58. She denies any chest pain, palpitations, or anginal equivalents. Blood pressure is stable. OBJECTIVE: Vital Signs: Temperature 98.4 degrees, pulse 56, respirations 14. BP 152/46. CV: Regular rate and rhythm with a 2/6 systolic ejection murmur at the left sternal margin. Lungs clear. Abdomen soft, nontender, with active bowel sounds. ASSESSMENT AND PLAN: 1. Intertrochanteric fracture of the left hip. We will resume Eliquis in the morning given her history of paroxysmal atrial fibrillation. We will use IV morphine for pain and switch her to oral medications as indicated. We will consult physical therapy and consult psychiatric social worker for short-term rehab placement. The family is interested in [facility]. 2. Paroxysmal atrial fibrillation. She remains in normal sinus rhythm. We will continue atenolol 25 mg daily for rate control and Cordarone 200 mg daily. cc: Ashu Garcia MD
[2017-05-15] MEDS: KEFZOL 1 GM/D5W 1 GM/50 ML IVPB IV SCH ×2 (16:11→22:23)
[2017-05-15] MEDS: COLACE PO SCH (22:22)
[2017-05-15] MEDS: PERIDEX MT SCH (22:23)
[2017-05-16] MEDS: MORPHINE IV PRN ×4 (00:05→23:05)
[2017-05-16] MEDS: NS 1,000 ML IV SCH ×2 (00:08→14:27)
[2017-05-16] MEDS: KEFZOL 1 GM/D5W 1 GM/50 ML IVPB IV SCH (00:09)
[2017-05-16] MEDS: TYLENOL PO SCH ×3 (05:26→21:39)
[2017-05-16 05:36] LABS: HEMATOCRIT 30.2 % (37.0-47.0); HEMOGLOBIN 9.5 g/dL (12.0-16.0)
[2017-05-16 05:50] LABS: AGAP 11; BUN 9 mg/dL (8-22); CALCIUM 8.5 mg/dL (8.8-10.2); CHLORIDE 105 mmol/L (98-107); COSMO 280; POTASSIUM 4.4 mmol/L (3.5-5.1); SODIUM 141 mmol/L (136-145); TCO2 25 mmol/L (25-35)
[2017-05-16] MEDS ORDERED: XARELTO PO SCH (06:00)
[2017-05-16] MEDS: SYNTHROID PO SCH (06:20)
[2017-05-16] MEDS: OXY IR PO PRN ×3 (06:22→21:39)
--- NOTE | 2017-05-16 08:04 | PROGRESS NOTE ---
DATE: 05/16/2017 SUBJECTIVE: Mrs. Lopez is postoperative day #1 following intramedullary nailing of the left hip secondary to a left intertrochanteric fracture. Her pain level has waxed and waned. She is getting IV morphine as needed. She has a history of paroxysmal atrial fibrillation. She remains in normal sinus rhythm. Her heart rate has been well controlled in the range of 58-66 on atenolol 25 mg daily. Thyroid studies were normal on the amiodarone. The chest x-ray demonstrated stable chronic COPD-type changes. She denies any chest pain, palpitations, or anginal equivalents. Blood pressure 162/53, pulse 66, respirations 18, temperature 98.4 degrees. CV: Regular rate and rhythm. Lungs clear. Abdomen soft, nontender, with active bowel sounds. ASSESSMENT AND PLAN: 1. Left intertrochanteric fracture of the hip status post intramedullary nailing. Her blood counts are stable this morning. Her hemoglobin was 9.5, and her hematocrit was 30.2. We will discontinue the Mendiola catheter. We will continue physical therapy. Reverse Engineer has been consulted to help find short-term rehab placement. The family would like to go to [facility] if possible. 2. Paroxysmal atrial fibrillation. She remains in normal sinus rhythm. We will continue Tenormin 25 mg daily for rate control and amiodarone. As her blood counts are stable, I will resume Eliquis 5 mg b.i.d. cc: Ashu Garcia MD
[2017-05-16] MEDS ORDERED: ELIQUIS PO SCH (09:00)
[2017-05-16] MEDS: CORDARONE PO SCH (11:19)
[2017-05-16] MEDS: PERIDEX MT SCH ×2 (11:19→21:39)
[2017-05-16] MEDS: LIPITOR PO SCH (11:20)
[2017-05-16] MEDS: COZAAR PO SCH (11:20)
[2017-05-16] MEDS: FERROUS SULFATE PO SCH (11:21)
[2017-05-16] MEDS: ZYLOPRIM PO SCH (11:21)
[2017-05-16] MEDS: TENORMIN PO SCH (11:21)
[2017-05-16] MEDS: COLACE PO SCH (21:39)
[2017-05-16] MEDS: ELIQUIS PO SCH (21:41)
[2017-05-17] MEDS: OXY IR PO PRN ×5 (00:55→20:40)
[2017-05-17 05:30] LABS: HEMATOCRIT 31.8 % (37.0-47.0); HEMOGLOBIN 10.2 g/dL (12.0-16.0)
[2017-05-17] MEDS: TYLENOL PO SCH ×3 (05:53→20:40)
[2017-05-17] MEDS: SYNTHROID PO SCH ×2 (05:54→06:26)
[2017-05-17] MEDS: FERROUS SULFATE PO SCH (10:14)
[2017-05-17] MEDS: CORDARONE PO SCH (10:14)
[2017-05-17] MEDS: ZYLOPRIM PO SCH (10:14)
[2017-05-17] MEDS: ELIQUIS PO SCH ×2 (10:14→20:40)
[2017-05-17] MEDS: COZAAR PO SCH (10:14)
[2017-05-17] MEDS: LIPITOR PO SCH (10:15)
[2017-05-17] MEDS: TENORMIN PO SCH (10:15)
[2017-05-17] MEDS: PERIDEX MT SCH ×2 (10:16→20:41)
[2017-05-17] MEDS: COLACE PO SCH (20:40)
[2017-05-18] MEDS: OXY IR PO PRN ×6 (01:00→21:44)
[2017-05-18] MEDS: SYNTHROID PO SCH ×2 (05:43→06:18)
[2017-05-18] MEDS: TYLENOL PO SCH ×3 (05:43→20:29)
[2017-05-18] MEDS: MORPHINE IV PRN (05:47)
[2017-05-18 05:52] LABS: HEMATOCRIT 30.3 % (37.0-47.0); HEMOGLOBIN 9.8 g/dL (12.0-16.0)
[2017-05-18] MEDS: FERROUS SULFATE PO SCH (08:31)
[2017-05-18] MEDS: LIPITOR PO SCH (08:31)
[2017-05-18] MEDS: ZYLOPRIM PO SCH (08:31)
[2017-05-18] MEDS: ELIQUIS PO SCH ×2 (08:31→20:29)
[2017-05-18] MEDS: CORDARONE PO SCH (08:31)
[2017-05-18] MEDS: TENORMIN PO SCH (08:32)
[2017-05-18] MEDS: COZAAR PO SCH (08:33)
[2017-05-18] MEDS: PERIDEX MT SCH ×2 (08:33→20:29)
[2017-05-18] MEDS ORDERED: BLISTEX MEDICATED BERRY LIP BALM TOP PRN (19:47)
[2017-05-18] MEDS: COLACE PO SCH (20:29)
[2017-05-19] MEDS: OXY IR PO PRN ×4 (01:25→13:57)
[2017-05-19] MEDS: TYLENOL PO SCH (05:42)
[2017-05-19] MEDS: SYNTHROID PO SCH (05:42)
--- NOTE | 2017-05-19 08:29 | PROGRESS NOTE ---
DATE: 05/19/2017 SUBJECTIVE: Ms. Lopez is a 72-year-old female, who is postoperative day 4 from a left trochanteric fixation nail placement. She is awaiting rehab placement. She has no new complaints. OBJECTIVE: She is well developed, well nourished, female. She is alert, oriented, cooperative with the examination. She is in no acute distress. Her vital signs are stable. She is afebrile. Her last hemoglobin was 9.8. Her last hematocrit was 30.3. She is ambulating well with physical therapy. Her wound is clean, dry, intact without sign of infection. His calf is soft. Her left leg is neurovascularly intact. ASSESSMENT: Stable postoperative day 4 from a left trochanteric fixation nail placement. PLAN: We will have her continue working with physical therapy. We will continue to manage her pain. Hopefully, she will be transferred to rehab today or tomorrow. Dictated by RUY Craig for James Venegas MD cc: RUY Craig MD M. Neel Roberts, MD
[2017-05-19 08:44] VITALS: BP 124/67
[2017-05-19] MEDS: LIPITOR PO SCH (09:01)
[2017-05-19] MEDS: COZAAR PO SCH (09:01)
[2017-05-19] MEDS: TENORMIN PO SCH (09:01)
[2017-05-19] MEDS: FERROUS SULFATE PO SCH (09:02)
[2017-05-19] MEDS: ELIQUIS PO SCH (09:02)
[2017-05-19] MEDS: CORDARONE PO SCH (09:03)
[2017-05-19] MEDS: ZYLOPRIM PO SCH (09:03)
[2017-05-19] MEDS: PERIDEX MT SCH (09:06)
--- NOTE | 2017-05-19 10:38 | DISCHARGE SUMMARY ---
ADMISSION DATE: 05/14/2017 DISCHARGE DATE: 05/19/2017 DISCHARGE DIAGNOSIS: Left hip intertrochanteric fracture status post left trochanteric fixation nail placement. DISCHARGE MEDICATIONS: See discharge medication list. DISPOSITION: Patient is discharged to rehab. Instructed to remove the paul in 10 days. Instructed to return for any signs or symptoms of infection or deep venous thrombosis. Instructed weightbearing as tolerated. Instructed to return to see Dr. Venegas in 2 weeks. HOSPITAL COURSE: On the day of admission, patient underwent a left TFN the following day on 05/15/2017. Her postoperative course was unremarkable. At discharge, she is afebrile, tolerating a regular diet, ambulating with physical therapy. Her wounds are clean, dry, intact without sign of infection. She is discharged to rehab in stable condition with instructions to follow up as described above. cc: MD Ashu Reed MD
== END 2017-05-19 14:10 ==
LOC: ED 02:39 → SUATTDRO 05:39 → 4N 05:39
PROVIDERS: ADMIT Internal Medicine; ATTEND Internal Medicine

== ENCOUNTER 2018-08-21 22:54 | Inpatient (IN) ==
[2018-08-21] MEDS ORDERED: CARDIZEM IV ONE (23:13)
[2018-08-21] MEDS ORDERED: CARDIZEM 100 MG in NS 80 ML IV SCH (23:15)
[2018-08-21] MEDS ORDERED: NS 1,000 ML ONE (23:28)
[2018-08-21] MEDS ORDERED: NS 1,000 ML IV ONE (23:35)
[2018-08-21 23:56] LABS: BASO# 0.02 X1000 (0.0-0.2); BASO% 0.2 % (0.0-0.8); EOS# 0.01 X1000 (0.0-0.7); EOS% 0.1 % (0.0-10.0); HEMATOCRIT 39.8 % (37.0-47.0); HEMOGLOBIN 12.6 g/dL (12.0-16.0); IMM GRAN# 0.02 X1000 (0.0-0.04); IMM GRAN% 0.2 % (0.0-0.5); LYMPH# 1.63 X1000 (1.2-3.4); LYMPH% 15.7 % (20.5-51.1); MCH 31.6 PG (27-31); MCHC 31.7 g/dL (33-37); MCV 99.7 FL (81-99); MONO% 11.6 % (1.7-9.3); MPV 10.2 FL (7.4-10.4); NEUT% 72.2 % (42.2-75.2); PLT 225 X1000 (130-400); RBC 3.99 XMIL (4.2-5.4); RDW 14.2 % (11.5-14.5); WBC 10.38 X1000 (4.8-10.8)
[2018-08-22 00:14] LABS: AGAP 14; BUN 11 mg/dL (8-22); CALCIUM 9.1 mg/dL (8.8-10.2); CHLORIDE 102 mmol/L (98-107); COSMO 277; CREATININE 0.6 mg/dL (0.5-0.9); ESTIMATED GFR > 60; GLUCOSE 127 mg/dL (70-104); POTASSIUM 4.3 mmol/L (3.5-5.1); SODIUM 138 mmol/L (136-145); TCO2 22 mmol/L (25-35)
[2018-08-22] MEDS ORDERED: LOPRESSOR IV ONE ×2 (01:11→01:30)
[2018-08-22] MEDS ORDERED: LANOXIN IV ONE (01:11)
[2018-08-22] MEDS ORDERED: NS 500 ML IV ONE (01:24)
[2018-08-22] MEDS ORDERED: NORCO-7.5 PO ONE (01:37)
--- NOTE | 2018-08-22 01:37 | PROVIDER DOCUMENTATION ---
This chart was entered by Caridad Ruiz Scribe, acting as scribe for Yves Pendleton MD. HPI-General Adult - General Chief Complaint: Shortness of Breath Stated Complaint: sob Time Seen by Provider: 08/21/18 23:20 Source: patient Allergies/Adverse Reactions: Patient Allergies Allergy/AdvReac Type Severity Reaction Status Date / Time No Known Allergies Allergy Verified 08/21/18 23:23 Home Medications: Home Medication List Medication Instructions Recorded Confirmed Last Taken Type Folic Acid 1 mg PO DAILY 07/08/17 08/21/18 08/21/18 07:00 History Levothyroxine [Synthroid] 75 microgm PO DAILY 07/08/17 08/21/18 08/21/18 07:00 History Sertraline [Zoloft] 100 mg PO DAILY 07/08/17 08/21/18 08/21/18 07:00 History Allopurinol [Zyloprim] 300 mg PO DAILY 07/11/18 08/21/18 08/21/18 07:00 History Cilostazol [Pletal] 100 mg PO BID 07/11/18 08/21/18 08/21/18 07:00 History Furosemide [Lasix] 40 mg PO DAILY tablet 07/30/18 08/21/18 08/21/18 07:00 Rx Apixaban [Eliquis] 5 mg PO DAILY 08/02/18 08/21/18 07/28/18 History Aspirin [Aspirin EC] 81 mg PO DAILY 08/02/18 08/21/18 08/21/18 07:00 History Tramadol [Ultram] 50 mg PO Q6H PRN PRN 08/05/18 08/21/18 08/05/18 06:15 History Atorvastatin Calcium [Lipitor] 40 mg PO QHS 08/21/18 08/21/18 08/20/18 20:00 History Isosorbide Mononitrate E.r. [Imdur] 30 mg PO DAILY 08/21/18 08/21/18 08/21/18 07 :00 History Methocarbamol [Robaxin-750] 750 mg PO TID 08/21/18 08/21/18 08/21/18 13:00 History Metoclopramide HCl [Reglan] 5 mg PO DIRECTED 08/21/18 08/21/18 Unknown History Metoprolol [Lopressor] 50 mg PO BID 08/21/18 08/21/18 08/21/18 07:00 History Omeprazole [Prilosec] 40 mg PO DAILY 08/21/18 08/21/18 08/21/18 07:00 History Trazodone HCl 150 mg PO QHS 08/21/18 08/21/18 08/20/18 20:00 History - History of Present Illness -Gen Adult Nature of Presenting Problems: Pt presents to ED by ems w/ complaint of SOB and heart palpitations for the last couple of days. Pt has no c/p. [place] 3 weeks prior, arrived in Afib w/ RVR Location of Pain/Injury: reports: other (SOB) Pain Radiation: reports: no radiation Quality of Pain: reports: other (SOB) Severity: reports: mild Onset/Duration: reports: 2 days ago Timing: reports: still present Context/Activities at Onset: reports: none Modifying Factors: improves with: nothing Associated Symptoms: denies: chest pain, nausea, vomiting Similar Symptoms Previously?: Yes Recently seen or treated by another doctor?: No Review of Systems - Adult - REVIEW OF SYSTEMS - ADULT Constitutional: denies: chills, fever Eyes: reports: no symptoms reported Ears, Nose, Mouth & Throat: reports: no symptoms reported Cardiovascular: denies: chest pain, edema Respiratory: reports: no symptoms reported Gastrointestinal: reports: no symptoms reported. denies: abdominal pain, nausea , vomiting Genitourinary: reports: no symptoms reported Musculoskeletal: reports: no symptoms reported Integumentary: reports: no symptoms reported Neurological: reports: no symptoms reported Psychiatric: reports: no symptoms reported Endocrine: reports: no symptoms reported Hematologic/Lymphatic: reports: no symptoms reported Allergic/Immunologic: reports: no symptoms reported All Other Systems: Reviewed and Negative Past History - Adult - PAST MEDICAL HISTORY-ADULT Review of Records: reports: Old Records Reviewed, Nursing Assessment Review, Medications Reviewed, Social history reviewed & non-contributory. Major Childhood Illnesses: reports: denies history Cardiovascular: reports: HTN Respiratory: reports: denies history Gastrointestinal: reports: denies history Obstetrical/Gynecological: reports: denies history Genitourinary: reports: denies history Musculoskeletal: reports: denies history Neurological: reports: denies history Psychiatric: reports: anxiety Endocrine/Immune: reports: thyroid disorder Other Conditions: reports: cataract/glaucoma, deaf/hard of hearing - PRIOR SURGERIES/PROCEDURES Surgical/Procedure History: reports: hysterectomy, BTL - IMMUNIZATION STATUS Childhood Immunizations: See Nurse Assessment Flu Vaccine: See Nurse Assessment - FAMILY HISTORY Family History: reviewed, not pertinent - SOCIAL HISTORY Smoking: denies, non-smoker Substance Use: none/never Alcohol Use Frequency: never Living Situation: alone Physical Exam-General - PHYSICAL EXAM-ADULT Initial Vital Signs Reviewed: Yes - CONSTITUTIONAL General Appearance: appears well, alert, no apparent distress - EYES Eyes: PERRL/EOMI - HEAD, EARS, NOSE, MOUTH & THROAT HENMT: moist mucous membranes, normal ENT inspection, TMs normal - NECK Neck: non-tender, full range of motion, supple - RESPIRATORY Respiratory: chest non-tender, lungs clear, normal breath sounds - CARDIOVASCULAR Cardiovascular: other (A fib w/ RVR, HR 157) - GASTROINTESTINAL (ABDOMEN) Abdominal Exam: normal bowel sounds, non tender, soft - LYMPHATIC Lymphatic: no adenopathy - MUSCULOSKELETAL Back Exam: normal inspection, no CVA tenderness, no vertebral tenderness Extremity: normal range of motion, non-tender, normal gait, normal inspection - SKIN Integumentary: normal color, normal turgor, warm/dry - NEUROLOGIC Neurologic: grossly normal - PSYCHIATRIC Psych/Mental Status: normal mood/affect, normal thought content, normal thought process, oriented x 3 Progress - PLAN OF CARE/RESULTS Progress/Plan/Lab Results: Vital Signs - 8 hr 08/21/18 23:14 Temperature 98 F Pulse Rate 157 H Respiratory Rate 26 H Blood Pressure 125/95 O2 Sat by Pulse Oximetry 92 L Orders Category Date Time Status TROPONIN T Stat Lab 08/21/18 23:04 Received 0.9% Sodium Chloride Inj [Ns] 1,000 ml Med 08/21/18 23:28 Discontinued .ROUTE As Directed 0.9% Sodium Chloride Inj [Ns] 80 ml Med 08/21/18 23:15 Active Diltiazem [Cardizem] 100 mg IV As Directed Diltiazem [Cardizem] Med 08/21/18 23:13 Discontinued 20 mg IV NOW ONE EKG [EKG] Stat Ther 08/21/18 22:55 Ordered Patient care, assessment and plan discussed with the attending physician Dr. Jeffery Francis and he agree with the plan as documented. Result Diagrams: 08/21/18 23:04 08/21/18 23:04 - REASSESSMENT Reassessment #1 Time Reassessed: 23:42 Status: improving (HR around 100, patient feels better.) Reassessment #2 Time Reassessed: 00:20 Status: improving (HR in 90s, patient denies complaints.) - CONSULTS/PCP/HOSPITALIST Notification #1 *Consult/PCP/Hospitalist*: Dr. Cy Mauricio Time Discussed: 00:47 Consult Disposition: Admit (Patient Hx, physical exam and Dx Discussed with Dr. Benoit.) Departure - Departure Date of Disposition Decision: 08/22/18 Time of Disposition Decision: 00:47 DIAGNOSIS: Atrial fibrillation with RVR Disposition: ADMITTED INPATIENT 09 Certified Medical Emergency: Emergent Condition: Stable Referrals and Follow-Ups: Henok Garcia MD [Primary Care Provider] - - Critical Care Note This patient required my direct & personal management of CC.: Yes Total Time (mins): 35 Critical Care Statement: This patient required my direct personal management to treat or rule out processes, the absence of which, could potentiallly result in sudden, clinically significant life or limb threatening deterioration. Attestation - Physician/ RAUL Attestation Patient care was provided by Advanced Practice Provider:: No The physician spent face to face time with patient:: Yes Advanced Practice Provider documentation review:: Supervising physician onsite and consulted in the evaluation and care of this patient. The physician did have a face to face encounter with the patient. This chart was documented by the indicated scribe, (Caridad Ruiz, Lewis) and accurately reflects the services I performed and decisions made by me, Yves Pendleton MD, as attested by the provider's signature.
[2018-08-22] MEDS ORDERED: TYLENOL PO PRN (02:36)
[2018-08-22] MEDS ORDERED: ZOFRAN IV PRN (02:36)
[2018-08-22] MEDS ORDERED: ATIVAN IV ONE (02:47)
[2018-08-22] MEDS ORDERED: LASIX IV ONE (05:26)
[2018-08-22 05:53] LABS: URINE SOURCE CATH
[2018-08-22 05:55] LABS: BILIRUBIN URINE NEGATIVE (NEGATIVE); BLOOD URINE NEGATIVE (NEGATIVE); COLOR YELLOW; GLUCOSE URINE NEGATIVE (NEGATIVE); KETONE URINE NEGATIVE (NEGATIVE); LEUKOCYTES URINE NEGATIVE (NEGATIVE); NITRITE URINE NEGATIVE (NEGATIVE); PROTEIN URINE TRACE mg/dL (NEGATIVE); TURBIDITY URINE CLEAR (CLEAR); UR EPITHELIAL CELLS <10 /HPF (<10); URINE BACTERIA NEGATIVE /HPF; URINE RBC <10 /HPF (<10); URINE WBC <10 /HPF (<10); UROBILINOGEN URINE NORMAL (NORMAL)
--- NOTE | 2018-08-22 06:04 | HISTORY AND PHYSICAL ---
CHIEF COMPLAINT: Shortness of breath. HISTORY OF PRESENT ILLNESS: Ms. Kristen Lopez is a 73-year-old female who is followed by Dr. Ashu Garcia outpatient. She has a past medical history significant for coronary artery disease status post non-ST elevation myocardial infarction, mixed hyperlipidemia, hypertension, hypothyroidism, paroxysmal atrial fibrillation on Eliquis, chronic respiratory failure with hypoxia secondary to chronic COPD and intermittent claudication secondary to peripheral artery disease as well as kidney stones status post lithotripsy. She was most recently admitted on 07/29/2018 for atrial fibrillation with a rapid ventricular rate. She takes metoprolol at home. The patient again tonight was found to be in atrial fibrillation with a rapid ventricular rate. On arrival, her heart rate was as high as 157 and the patient was having noted shortness of breath and has had palpitations for the last couple of days. She was given a fluid bolus in the emergency room. Chest x-ray is pending. But on exam the patient did have mild crepitations. She will be admitted to CICU. She was originally started on a Cardizem drip. We will try to manage with a dose of digoxin at this time and IV push metoprolol, and the patient can restart her home regimen of metoprolol tomorrow morning. PAST MEDICAL HISTORY: See HPI. PREVIOUS SURGICAL HISTORY: 1. Bilateral carotid endarterectomy. 2. Left shoulder surgery. 3. Left total hip. 4. Hernia repair. 5. Cholecystectomy. 6. Hysterectomy. 7. Bladder tack. ALLERGIES: No known drug allergies. SOCIAL HISTORY: She is a former smoker. Occasionally uses alcohol. She is a . FAMILY HISTORY: Positive for lupus in her daughter. No heart disease or diabetes in first-degree relatives. HOME MEDICATIONS: 1. Folic acid 1 mg p.o. daily. 2. Zoloft 100 mg p.o. daily. 3. Levothyroxine 75 mcg p.o. daily. 4. Pletal 100 mg p.o. b.i.d. 5. Allopurinol 300 mg p.o. daily. 6. Lasix 40 mg p.o. daily. 7. Aspirin 81 mg p.o. daily. 8. Eliquis 5 mg p.o. daily. 9. Ultram 50 mg p.o. q.6 hours p.r.n. 10.Methocarbamol 750 mg p.o. t.i.d. 11.Reglan 5 mg p.o. as directed. 12.Omeprazole 40 mg p.o. daily. 13.Trazodone 150 mg p.o. at bedtime. 14.Atorvastatin 40 mg p.o. q at bedtime. 15.Isosorbide 30 mg p.o. daily. 16.Metoprolol 50 mg p.o. b.i.d. REVIEW OF SYSTEMS: A 14 point review of systems conducted with the patient and pertinent positives listed above in HPI. All other systems reviewed and found to be negative. PHYSICAL EXAMINATION: VITAL SIGNS: Temperature 98.0 degrees Fahrenheit, pulse 157 on arrival and down to 107 after Cardizem push, respirations 25, blood pressure 127/104. Oxygen saturation 90% on 3 L nasal cannula. GENERAL: A 73-year-old, female, lying on the ER stretcher in no acute distress. HEENT: Head: Normocephalic and atraumatic. Eyes: Pupils are equal, round and reactive to light. Extraocular eye movements intact. Sclerae are anicteric. Conjunctivae is pink. Oral mucosa is moist. NECK: Supple. No JVD. No thyromegaly. Trachea is midline. Bilateral carotid bruits. CARDIOVASCULAR: Irregularly irregular tachycardic. No murmur, gallop, or rub could be auscultated. LUNGS: Decreased bilateral crepitations noted throughout the air griggs. Symmetric rise and fall of respirations. ABDOMEN: Soft, nontender, nondistended. Bowel sounds present all four quadrants, normoactive. No pulsatile mass. No organomegaly. EXTREMITIES: No clubbing,cyanosis or edema. Two-plus pedal pulses. SKIN: Warm, dry and intact. No acute lesions or rash. GENITOURINARY: No bladder distention. The patient voids. Otherwise deferred. NEUROLOGIC: Alert and oriented x3. No focal deficits. Otherwise a nonfocal examination. DIAGNOSTIC DATA: 1. Chest x-ray pending. 2. EKG shows atrial fibrillation with a rapid ventricular rate. LABORATORY DATA: 1. CBC: Within normal limits. 2. Sodium 138, potassium 4.3, chloride 102, carbon dioxide 22, BUN 11, creatinine 0.6, glucose 127. IMPRESSION AND PLAN: 1. Atrial fibrillation with a rapid ventricular rate. She was given Cardizem push in the emergency room and started on a drip. Discontinue the drip. Give IV digoxin. She was fluid bolused in the emergency room. We will give 5 mg of metoprolol IV that can be repeated in 15 minutes if heart rate is still above 100. Continue her Eliquis. Restart metoprolol 50 mg p.o. b.i.d. She will be placed on CICU. 2. Chronic respiratory failure secondary to COPD. We will continue her DuoNeb and Symbicort. Chest x-ray is still pending. We will evaluate when available. 3. Hypertension. Continue home medications. 4. Hyperlipidemia. Continue home medications. Check TSH. Continue home dose of Synthroid. Defer further management to her primary care provider, Dr. Ashu Garcia. Dictated by MARQUISE Patel for Hang Benoit MD I have performed a face to face diagnostic evaluation. Labs and Xrays reviewed.Exam- CV- irregular A/P- A.Fib- Admit, IV cardizem, Cardiology consult. Dr. Benoit cc: MARQUISE Patel MD M. Neel Roberts, MD [facility]ic[facility]
[2018-08-22] MEDS: SYNTHROID PO SCH (07:00)
--- NOTE | 2018-08-22 08:46 | Diag Imaging Result Doc PS360 ---
EXAM: CHEST-PORTABLE INDICATION: Sob TECHNIQUE: One view COMPARISON: 07/29/2018 FINDINGS: Central vasculature is increased and there are increased interstitial markings bilaterally suggesting pulmonary venous congestion and interstitial edema. There is evidence of prior granulomatous disease. There is no discrete pleural fluid collection or pneumothorax. There is stable cardiomegaly. IMPRESSION: Findings suggesting pulmonary venous congestion and interstitial edema. Electronically signed by Scot Severino 08/22/2018 8:44 AM
[2018-08-22] MEDS: PLETAL PO SCH ×3 (08:56→22:21)
[2018-08-22] MEDS: IMDUR PO SCH (08:56)
[2018-08-22] MEDS: LASIX PO SCH (08:56)
[2018-08-22] MEDS: LOPRESSOR PO SCH ×3 (08:56→22:20)
[2018-08-22] MEDS: FOLIC ACID PO SCH (08:56)
[2018-08-22] MEDS: PRILOSEC PO SCH (08:57)
[2018-08-22] MEDS: ZOLOFT PO SCH (08:57)
[2018-08-22] MEDS: ZYLOPRIM PO SCH (08:57)
[2018-08-22] MEDS: ROBAXIN PO SCH ×4 (08:57→22:20)
[2018-08-22] MEDS ORDERED: ELIQUIS PO SCH (09:00)
[2018-08-22] MEDS: ULTRAM PO PRN ×2 (10:35→19:58)
--- NOTE | 2018-08-22 12:56 | PROGRESS NOTE ---
DATE: 08/22/2018 SUBJECTIVE: The patient's chart was reviewed. In summary, patient was admitted early this morning with atrial fibrillation with rapid ventricular response. Chest x-ray was significant for a volume overload, likely a combination of rate and underlying congestive heart failure. Patient was treated with IV Lasix. Initially, she was placed on a Cardizem drip, but was converted to a dose of IV digoxin followed by IV metoprolol. This morning, patient was transitioned to metoprolol 50 mg twice daily. Upon my arrival, patient was comfortable. Heart rate was borderline ranging between 90 and 110. Her shortness of breath has improved considerably with Lasix therapy. She denies fevers, chills, nausea, vomiting or chest discomfort. OBJECTIVE: Vital Signs: Temperature 98.0 degrees, heart rate 93, respirations 16, blood pressure is 131/76. General: Chronically ill appearing, no acute distress. Cardiovascular: Irregularly irregular. Slightly tachycardic. No significant murmurs, rubs, or gallops. Pulmonary: Clear to auscultation anteriorly. Abdomen: Soft, nontender, nondistended. Positive bowel sounds. Extremities: Moves all extremities well. No significant clubbing, cyanosis, or edema. Dermatologic: Evaluation reveals no evidence of rash. LABORATORY DATA: Cardiac enzymes thus far have returned negative. ASSESSMENT AND PLAN: 1. Atrial fibrillation with rapid ventricular response--as above, patient's heart rate is borderline. She has been given 1 dose of intravenous digoxin. Metoprolol 50 mg twice daily was initiated this morning. As patient is a patient of Dr. Mederos, we will ask him to consult. We will adjust medications thereafter. We will continue Eliquis therapy. 2. Chronic respiratory failure secondary to chronic obstructive pulmonary disease--we will continue patient on DuoNeb and Symbicort therapy. We will remain aware that albuterol may be exacerbating tachycardia. 3. Congestive heart failure with volume overload--patient's ejection fraction has been noted between 30% and 35% at last echocardiogram. I suspect the combination of this and rate- associated volume issues precipitated her shortness of breath and pulmonary edema. We will continue. She was treated with Lasix therapy. She appears to be euvolemic today. 4. Hypertension--we will continue home regimen. 5. Hyperlipidemia--we will continue home regimen. 6. Disposition--at this point, patient continues to require correction care in a hospital setting. We will plan discharge home once appropriate. cc: MD Ashu Orr MD
[2018-08-22] MEDS: ASPIRIN EC PO SCH (16:32)
--- NOTE | 2018-08-22 19:45 | CARDIOLOGY CONSULTATION ---
DATE: 08/22/2018 CHIEF COMPLAINT ON PRESENTATION: Shortness of breath. HISTORY OF PRESENT ILLNESS: Ms. Lopez is a 73-year-old white female with a history of paroxysmal atrial fibrillation, coronary artery disease and ischemic cardiomyopathy. She present to the hospital for roughly 2 days of shortness of breath. She was found to be in atrial fibrillation with rates as high as into the 150s on presentation. She initially was initiated on beta blockers as well as digoxin and seemed to do better. She has had some orthopnea over the last few days. No chest pain. She denies any lower extremity edema. She reports compliance with her medications. PAST MEDICAL HISTORY: 1. Significant for coronary disease and ischemic cardiomyopathy. Her most recent cardiac catheterization was in July 2018. This study demonstrated a LV function of 35% to 40% with a large posterior basal aneurysm. Left main was normal. Left anterior descending had a tubular 60% proximal lesion. Circumflex had a 60% proximal disease. RCA was chronically occluded with [id number] and [id number] collateralization. 2. Paroxysmal atrial fibrillation, maintained on Eliquis. 3. Venous insufficiency. 4. Hypertension. 5. Hyperlipidemia. 6. Previous tobacco abuse with current COPD and home oxygen therapy. 7. Carotid artery disease. 8. History of GI bleeding possibly secondary to diverticulosis as well as hemorrhoids. 9. Hypothyroidism. SOCIAL HISTORY: Former smoker. Rare alcohol. . She lives with her daughter. FAMILY HISTORY: Significant for lupus. No heart disease in her first-degree relatives. REVIEW OF SYSTEMS: A 10 system review of systems is negative except for those things mentioned in HPI. PHYSICAL EXAMINATION: Vital Signs: The patient is afebrile. Current heart rates appear to be in the 90s to 100s in atrial fibrillation. Blood pressure is 137/84. General: She is in no acute distress. HEENT: Oropharynx is moist. She has normal dentition. Eye examination is pink conjunctivae, white sclerae. Neck: Examination shows no obvious thyromegaly or thyroid tenderness. Cardiovascular: She sounds to be in an irregularly irregular rhythm. She has no obvious murmurs. She has no S3. She has no lower extremity edema. Chest: Chest exam sounds clear bilaterally. She has no increased work of breathing. Abdomen: Soft, nontender, nondistended. She has no obvious organomegaly. Skin: Warm and dry throughout without any rashes. Neurologic: She is moving all extremities well. PERTINENT DATA: She had an EKG that showed atrial fibrillation, rapid ventricular response. She was noted to have a normal QT interval. Her chest x-ray demonstrates pulmonary venous congestion and interstitial edema. Her laboratory data demonstrates a white count of 10.4, hematocrit 39, her platelet count is 225,000. Her sodium is 138, potassium 4.3, BUN 11, creatinine 0.6. Cardiac enzymes are negative. Her TSH is 4.43. ASSESSMENT: Ms. Lopez is a 73-year-old female with ischemic cardiomyopathy who presented in rapid atrial fibrillation. PLAN: Patient has a history of paroxysmal atrial fibrillation and seems to be symptomatic secondary to her rapid atrial fibrillation. She does not have very good options as far as antiarrhythmics go. We could use amiodarone, but this certainly would be problematic with her lung disease. In addition, sotalol would likely cause us to have to discontinue her metoprolol. Presently, we will try a rate control method on this patient. Currently, she is on metoprolol at a dose of 50 b.i.d. We will continue to try to escalate that as needed during this hospitalization. I have increased her apixaban up to 5 b.i.d., which would be the appropriate dose for this patient's age, weight and renal function. I will not recheck an echo on this patient secondary to her recent ejection fraction evaluations just last month. For now, we will continue her on these current medications. She was administered an IV dose of Lasix last night and she did seemingly present with some heart failure likely secondary to the rapid atrial fibrillation. cc: MD Ashu Myers MD
[2018-08-22] MEDS: LIPITOR PO SCH ×2 (19:58→22:20)
[2018-08-22] MEDS: ELIQUIS PO SCH ×2 (19:58→22:20)
[2018-08-22] MEDS: DESYREL PO SCH (21:25)
[2018-08-23] MEDS: SYNTHROID PO SCH (06:07)
[2018-08-23 07:06] LABS: BASO# 0.01 X1000 (0.0-0.2); BASO% 0.1 % (0.0-0.8); EOS# 0.08 X1000 (0.0-0.7); EOS% 1.2 % (0.0-10.0); HEMATOCRIT 37.2 % (37.0-47.0); HEMOGLOBIN 11.8 g/dL (12.0-16.0); IMM GRAN# 0.02 X1000 (0.0-0.04); IMM GRAN% 0.3 % (0.0-0.5); LYMPH# 1.56 X1000 (1.2-3.4); LYMPH% 22.9 % (20.5-51.1); MCH 31.6 PG (27-31); MCHC 31.7 g/dL (33-37); MCV 99.5 FL (81-99); MONO# 0.84 X1000 (0.11-0.59); MONO% 12.4 % (1.7-9.3); MPV 9.6 FL (7.4-10.4); NEUT# 4.29 X1000 (1.4-6.5); NEUT% 63.1 % (42.2-75.2); PLT 205 X1000 (130-400); RBC 3.74 XMIL (4.2-5.4); RDW 14.3 % (11.5-14.5)
--- NOTE | 2018-08-23 07:21 | EKG Report ---
Test Performed on : 08/21/2018 11:09:05 PM Test Reason : a fib Blood Pressure : / mmHG Vent. Rate : 142 BPM Atrial Rate : 144 BPM P-R Int : 000 ms QRS Dur : 094 ms QT Int : 254 ms P-R-T Axes : 000 041 235 degrees QTc Int : 390 ms Atrial fibrillation. with rapid ventricular response. Minimal voltage criteria for LVH, may be normal variant ST & T wave abnormality, consider inferolateral ischemia Abnormal ECG When compared with ECG of 05-AUG-2018 08:27, Vent. rate has increased BY 54 BPM Unconfirmed Result
[2018-08-23 07:40] LABS: AGAP 11; BUN 11 mg/dL (8-22); CHLORIDE 102 mmol/L (98-107); COSMO 278; CREATININE 0.6 mg/dL (0.5-0.9); ESTIMATED GFR > 60; GLUCOSE 90 mg/dL (70-104); POTASSIUM 3.7 mmol/L (3.5-5.1); SODIUM 140 mmol/L (136-145); TCO2 27 mmol/L (25-35)
--- NOTE | 2018-08-23 09:03 | PROGRESS NOTE ---
DATE: 08/23/2018 SUBJECTIVE: Ms. Daniels has a history of paroxysmal atrial fibrillation. She was admitted to [facility] with atrial fibrillation with RVR. She remains in atrial fibrillation. Her heart rate has improved greatly. Over the past few hours, her heart rate has been in the 80s. Dr. Mederos has given her digoxin and increased her dosage of Lopressor. She has a history of acute on chronic congestive heart failure secondary to systolic dysfunction. Her most recent echocardiogram demonstrated an EF of 30 to 35 percent. She has been given Lasix with good urine output. She reports that she is breathing much more comfortably this morning. She denies any PND or orthopnea but does have some persistent peripheral edema. OBJECTIVE: Vital Signs: O2 saturations were 94-95% on supplemental O2. Temperature 97.7 degrees, pulse 86, respirations 14, BP 109/65. CV: Irregularly irregular. Lungs: Faint crackles in the bases bilaterally. Abdomen: Soft, nontender, with active bowel sounds. Extremities: Trace ankle edema. ASSESSMENT AND PLAN: 1. Paroxysmal atrial fibrillation. She has converted into atrial fibrillation. Heart rate has improved on digoxin and metoprolol. I appreciate Dr. Mederos's help. I do not know whether she would benefit from antiarrhythmics such as Multaq or amiodarone. Unfortunately, both have pulmonary side effects and she has significant chronic obstructive pulmonary disease. I do not know if she would ultimately be a candidate for ablation. We will continue aggressive rate control and Eliquis to reduce the risk of stroke. 2. Acute on chronic congestive heart failure secondary to systolic dysfunction. We will continue a salt and fluid restricted diet, and aggressive diuresis with Lasix. 3. Chronic respiratory failure with hypoxia secondary to chronic obstructive pulmonary disease. We will continue Symbicort and DuoNeb nebulizer treatments. cc: Ashu Garcia MD
[2018-08-23] MEDS: ASPIRIN EC PO SCH (09:45)
[2018-08-23] MEDS: ROBAXIN PO SCH ×3 (09:45→20:39)
[2018-08-23] MEDS: PRILOSEC PO SCH (09:45)
[2018-08-23] MEDS: PLETAL PO SCH ×2 (09:45→20:39)
[2018-08-23] MEDS: LOPRESSOR PO SCH ×2 (09:46→20:39)
[2018-08-23] MEDS: ZOLOFT PO SCH (09:46)
[2018-08-23] MEDS: IMDUR PO SCH (09:46)
[2018-08-23] MEDS: LASIX PO SCH (09:46)
[2018-08-23] MEDS: ELIQUIS PO SCH ×2 (09:46→20:39)
[2018-08-23] MEDS: FOLIC ACID PO SCH (09:46)
[2018-08-23] MEDS: ZYLOPRIM PO SCH (09:46)
[2018-08-23] MEDS: LANOXIN PO SCH (15:39)
--- NOTE | 2018-08-23 18:36 | CARDIOLOGY PROGRESS NOTE ---
DATE: 08/23/2018 SUBJECTIVE: Ms. Loepz reports her breathing has improved overnight. She does not have any palpitations. PHYSICAL EXAMINATION: She is afebrile. Heart rate of 89. Blood pressure is 137/76.General: She is in no acute distress. Cardiovascular: She sounds to be in an irregularly irregular rhythm. She has no obvious murmurs. She has no S3. Telemetry currently shows atrial fibrillation. She has no lower extremity edema. Chest: Clear bilaterally. She has no increased work of breathing. Abdomen: Soft, nontender. PERTINENT DATA: White count 6.8, hematocrit 37, platelet count is 205,000. Her sodium is 140, potassium 3.7, BUN 11, creatinine 0.6. ASSESSMENT: Ms. Lopez is a 73-year-old female with a history of a ischemic cardiomyopathy who presents with atrial fibrillation. PLAN: She has paroxysmal atrial fibrillation. We will attempt rate control at this time as she does not have very good options on antiarrhythmics. We will add in digoxin at 125 mcg daily in addition to the metoprolol that she is already on. We will have her follow up in the office in 1 month. I have also made arrangements to have her seen by the irrigation equipment mechanic in [place] to consider a primary prevention ICD. Notably she had an ejection fraction in the 30 to 35% range by echocardiogram in July 2018. cc: MD Ashu Myers MD
[2018-08-23] MEDS: ULTRAM PO PRN (20:38)
[2018-08-23] MEDS: LIPITOR PO SCH (20:39)
[2018-08-23] MEDS: DESYREL PO SCH (20:39)
[2018-08-23] MEDS ORDERED: LASIX IV SCH (21:00)
[2018-08-24] MEDS: SYNTHROID PO SCH (06:06)
[2018-08-24 08:31] LABS: AGAP 11; BUN 12 mg/dL (8-22); CALCIUM 9.7 mg/dL (8.8-10.2); CHLORIDE 98 mmol/L (98-107); COSMO 279; CREATININE 0.6 mg/dL (0.5-0.9); ESTIMATED GFR > 60; GLUCOSE 101 mg/dL (70-104); POTASSIUM 3.4 mmol/L (3.5-5.1); SODIUM 140 mmol/L (136-145); TCO2 31 mmol/L (25-35)
--- NOTE | 2018-08-24 08:40 | CARDIOLOGY PROGRESS NOTE ---
DATE: 08/24/2018 SUBJECTIVE: Ms. Lopez reports she feels well. She has no chest pain. No palpitations. OBJECTIVE: Vital signs: Patient is afebrile. Her heart rates over the last 9 checks have been in the majority in the 50 to 80 range. She had a couple of elevated ones of 110 and 123. Blood pressure of 130/67. General: She is in no acute distress. Cardiovascular: She sounds to be in an irregularly irregular rhythm, which is confirmed by telemetry which shows atrial fibrillation. She has no lower extremity edema. No murmurs. Chest: Clear bilaterally. She has no increased work of breathing. Abdomen: Soft, nontender, nondistended. She has no obvious organomegaly. PERTINENT DATA: Her white count 6.8, hematocrit 37, platelet count is 205,000. Her sodium is 140, potassium 3.7, BUN 11, creatinine 0.6. ASSESSMENT: Ms. Lopez is a 73-year-old female in atrial fibrillation. PLAN: From a cardiovascular standpoint, I believe she is okay for discharge. I will continue her on the metoprolol and the digoxin as well as the Eliquis. We will plan on a follow-up Holter monitor in 1 week to reassess her heart rate control, and I will follow her up in the office after that. She also has a [facility] [place] for evaluation for a primary prevention ICD. cc: MD Ashu Myers MD
[2018-08-24] MEDS ORDERED: LASIX PO SCH (09:00)
[2018-08-24] MEDS ORDERED: COZAAR PO SCH (09:00)
[2018-08-24] MEDS: PRILOSEC PO SCH (09:02)
[2018-08-24] MEDS: PLETAL PO SCH (09:02)
[2018-08-24] MEDS: LOPRESSOR PO SCH (09:02)
[2018-08-24] MEDS: ZYLOPRIM PO SCH (09:02)
[2018-08-24] MEDS: ASPIRIN EC PO SCH (09:02)
[2018-08-24] MEDS: IMDUR PO SCH (09:02)
[2018-08-24] MEDS: ELIQUIS PO SCH (09:02)
[2018-08-24] MEDS: ZOLOFT PO SCH (09:02)
[2018-08-24] MEDS: ROBAXIN PO SCH (09:03)
[2018-08-24] MEDS: FOLIC ACID PO SCH (09:03)
[2018-08-24] MEDS: LANOXIN PO SCH (09:06)
--- NOTE | 2018-08-24 09:54 | Diag Imaging Result Doc PS360 ---
EXAM: CHEST-2 VIEWS HISTORY: copd TECHNIQUE: Chest two views COMPARISON: 08/22/2018 FINDINGS: The lungs are hyperexpanded. The heart remains enlarged. Resolution of the pulmonary edema. There are small pleural effusions. There are several scattered granuloma. Prior orthopedic replacement of the left shoulder. IMPRESSION: 1.Emphysema 2.Cardiomegaly small pleural effusions 3.No pulmonary edema Electronically signed by Hayden Faria 08/24/2018 9:52 AM
[2018-08-24 12:17] VITALS: BP 111/77
[2018-08-24] MEDS ORDERED: PREVNAR 13 IM ONE (12:50)
--- NOTE | 2018-08-25 06:07 | DISCHARGE SUMMARY ---
ADMISSION DATE: 08/22/2018 DISCHARGE DATE: 08/24/2018 DISCHARGE DIAGNOSES: 1. Paroxysmal atrial fibrillation. 2. Atrial fibrillation with rapid ventricular response. 3. Chronic respiratory failure with hypoxia on chronic home oxygen. 4. Acute on chronic congestive heart failure secondary to systolic dysfunction with an EF of 30 to 35 percent. 5. Chronic obstructive pulmonary disease. 6. Previous history of tobacco abuse. 7. Essential hypertension. 8. Primary hypothyroidism. 9. Gastroesophageal reflux disease. 10. Gastroparesis. 11. Chronic low back pain secondary to lumbar spinal stenosis. 12. Depression. 13. Ischemic heart disease. 14. Mixed hyperlipidemia. 15. Intermittent claudication secondary to peripheral arterial disease. DISCHARGE INSTRUCTIONS: 1. Return to clinic in 1 week to see me, Dr. Vinay Garcia, in anticipation of a transition of care visit. 2. Activity as tolerated. 3. Healthy heart diet. MEDICATIONS: 1. Allopurinol 300 mg daily. 2. Eliquis 5 mg b.i.d. 3. Aspirin 81 mg daily. 4. Atorvastatin 40 mg at night. 5. Pletal 100 mg b.i.d. 6. Digoxin 125 mcg daily. 7. Folic acid 1 mg daily. 8. Lasix 40 mg daily. She may take a 2nd dose of Lasix if she gains 2 pounds in 24 hours. 9. Imdur 30 mg daily. 10. Synthroid 75 mcg daily. 11. Losartan 25 mg daily. 12. Reglan 5 mg before meals and at bedtime. 13. Metoprolol 50 mg b.i.d. 14. Prilosec 40 mg daily. 15. Zoloft 100 mg daily. 16. Ultram 50 mg q.6 hours p.r.n. pain. 17. Trazodone 150 mg at bedtime p.r.n. insomnia. DISCHARGE PHYSICAL EXAMINATION: General: This is an elderly, frail, 73-year-old lady in no apparent distress. She is afebrile. Vital signs: Stable. Cardiovascular: Irregularly irregular. Lungs: Distant breath sounds with increased period of expiration. Abdomen: Soft, nontender, with active bowel sounds. Extremities: Without edema. HISTORY OF PRESENT ILLNESS AND HOSPITAL COURSE: Mrs. Kristen Lopez he has a history of paroxysmal atrial fibrillation. The patient was admitted to [facility] with atrial fibrillation with RVR. The patient was loaded with digoxin and was continued on oral metoprolol. Cardiology was consulted to see the patient. She remained in atrial fibrillation but her heart rate improved greatly on the combination of digoxin and metoprolol. She will continue Eliquis 5 mg b.i.d. as well as a combination of digoxin and metoprolol for rate control. In talking to Dr. Mederos, her top frame fitter, we felt that antiarrhythmic such as Multaq or amiodarone had too many potential pulmonary side effects to safely try in the setting of chronic respiratory failure with hypoxia on home oxygen due to severe underlying COPD. We will make arrangements for Mrs. Lopez to see Dr. Mederos as an outpatient next week and will set her up for a Holter monitor. She has a history of chronic congestive heart failure secondary to systolic dysfunction. She had an echocardiogram in July 2018, which demonstrated an ejection fraction of 30 to 35 percent. She had increasing shortness of breath, increasing work of breathing and increasing peripheral edema. We felt that given her weakened heart that the atrial fibrillation with RVR exacerbated her underlying heart failure. She was placed on a salt and fluid restricted diet and was aggressively diuresed with Lasix. We added losartan 25 mg daily to help improve LV dysfunction. She responded well to aggressive measures. Repeat chest x-ray on admission only demonstrated very small effusions. She was maintaining O2 saturations of 98-99% on 2L of O2. We will continue her on a salt and fluid restricted diet. I have asked her to weigh daily. If she gains 2 pounds in 24 hours she may take an additional Lasix tablet that day. Dr. Mederos is going to make arrangements for her to be seen at the [facility] for consideration of placement of a primary ICD given her low EF. She does have a longstanding history of primary hypothyroidism. Thyroid studies were within normal limits. She denied any fatigue, hair loss, or cold intolerance. We will continue levothyroxine 75 mcg daily. She has a history of chronic congestive heart failure. She has a history of chronic respiratory failure with hypoxia on home oxygen secondary to COPD. She was maintained on her regular home medicines. She has had a previous Pneumovax on . Having reached maximum hospital benefit, the patient was discharged in stable condition. cc: Ashu Garcia MD
== END 2018-08-24 15:15 | disposition home or self-care (01) | DRG 308 ==
LOC: ED 22:54 → SUATTDRO 08-22 02:44 → EDIPHOLD 08-22 02:44 → 3N 08-22 15:05
PROVIDERS: ADMIT Internal Medicine; ATTEND Internal Medicine
CPT/HCPCS: 51702; 71010; 71020; 71045; 71046; 80048; 81001; 82550; 83735; 84443; 84484; 85025; 90670; 93005; 96365; 96366; 96375; 99285; 99291; A9270; J1160; J1940; J2060; J7030; J7040